=== PATIENT | male | born 1980 | race Caucasian/White ===

== ENCOUNTER 2024-06-29 15:36 | Emergency (ER) | payer OTHER ==
[~2024-06-29] VITALS: Ht 172.7 cm; Wt 83.9 kg
[2024-06-29] MEDS: morphine 4 MG/ML inj SYRINge IV ONE (16:48)
[2024-06-29] MEDS ORDERED: CHLO25CA10 PO (17:31)
[2024-06-29] MEDS ORDERED: NALT50TA5 PO (17:31)
[2024-06-29] MEDS: LORazepam 2 mg/ml vial IV ONE (17:45)
[2024-06-29] MEDS: bacitracin 15gm ointment TP ONE (17:45)
[2024-06-29] MEDS: HYDROcodone/acetaminophen 5mg/325mg tablet PO ONE (17:46)
[2024-06-29 18:49] VITALS: BP 155/116; PULSE 97; RESP 16; TEMP 98.1; O2SAT 98
== END 2024-06-29 18:50 | disposition home or self-care (01) ==
LOC: ER 15:37
DX: S80.212A Abrasion, left knee, initial encounter (principal); S70.211A Abrasion, right hip, initial encounter; S49.91XA Unspecified injury of right shoulder and upper arm, initial encounter; V29.888A Rider (driver) (passenger) of other motorcycle injured in other specified transport accidents, initial encounter; Y93.89 Activity, other specified; Y92.89 Other specified places as the place of occurrence of the external cause; Y99.8 Other external cause status
CPT/HCPCS: 71045; 73030; 73564; 96374; 96375; 99284; J2060; J2270; A6258; A6446; A6449